=== PATIENT | male | born 1995 | race Caucasian/White ===

== ENCOUNTER → 2020-11-10 | Outpatient (CLI) | payer OTHER ==
--- NOTE | 2020-11-11 11:06 | XR ---
EXAMINATION TYPE: XR lumbosacral spine min 4V DATE OF EXAM: 11/10/2020 COMPARISON: None HISTORY: Low back pain TECHNIQUE: Five-view lumbar spine FINDINGS: There 5 lumbar-type vertebral bodies. Pedicles are intact. Disc heights are preserved. Vert ebral body heights are preserved. Alignment is normal. No spondylolytic defects are evident. IMPRESSION: 1. Normal 5 view lumbar spine
== END | disposition home or self-care (01) ==
LOC: RADXRYALE 16:01
PROVIDERS: ATTEND Physician Assistant Medical
DX: M54.5 Low back pain (principal)
CPT/HCPCS: 72110

== ENCOUNTER → 2022-04-12 | Outpatient (CLI) | payer OTHER ==
--- NOTE | 2022-04-12 12:25 | CT ---
EXAMINATION TYPE: CT angio thor/abd pel aorta DATE OF EXAM: 04/12/2022 INDICATION: SOB, HTN CT DLP: 1012 mGy.cm Automated Exposure Control for Dose Reduction was Utilized. TECHNIQUE AND CONTRAST: CT scan of the chest, abdomen and the pelvis is performed without and with IV Contrast, as per [facility] and abdominal aortic angiogram protocol. Patient injected with 100 ml mL of Isovue 370. 3-D rec onstruction images were generated on an independent workstation and reviewed. COMPARISON: None available. FINDINGS: Bovine aortic arch. The left hepatic artery is seen arising directly from the celiac trunk. Otherwise normal caliber and enhancement of the thoracic and abdominal aorta as well as major mediastinal, abd ominal and common iliac arteries without significant stenosis, occlusion, dissection, aneurysm or AV malformation. Single renal artery supplying each kidney. No central or major pulmonary embolism. No c ardiomegaly. Unremarkable lungs. Patent central airways. No pleural or pericardial effusion. No pathologically enl arged lymph nodes in the chest. Anterior mediastinal densities, likely related to residual thymic t[place]. Unremarkable liver, gallbladder, spleen, pancreas, adrenals and kidneys. Unremarkable stomach, duodenum and visualized small bowel. Moderate fecal loading of the colon. Scatt ered subcentimeter mesenteric lymph nodes, nonspecific. No abdominal ascites. No aggressive bone lesi on. IMPRESSION: No significant thoracic or abdominal aortic abnormality. Incidental findings as described above.
== END | disposition home or self-care (01) ==
LOC: RADCTMAIN 09:01
PROVIDERS: ATTEND Internal Medicine
DX: I10 Essential (primary) hypertension (principal); R07.9 Chest pain, unspecified; R06.02 Shortness of breath
CPT/HCPCS: 82533; 82088; 84244; 84443; 71275; 74174; Q9967

== ENCOUNTER 2022-06-04 08:58 | Day surgery (SDC) | payer OTHER ==
[~2022-06-04 08:58] MED LIST: ASPIRIN 325 MG TAB PO STA; SODIUM CHLORIDE 0.9% 1,000 ML in EMPTY BAG 1 BAG IV ONE
[2022-06-04 09:45] VITALS: RESP 18; TEMP 98.2
[2022-06-04] MEDS ORDERED: HEPARIN SODIUM 1,000 UN/ML (10ML VL) ONE (10:12)
[2022-06-04] MEDS ORDERED: fentaNYL (PF) 50 MCG/ML 2 ML AMP ONE (10:13)
[2022-06-04] MEDS ORDERED: MIDAZOLAM 2 MG/2 ML VIAL IV ONE (10:27)
[2022-06-04] MEDS ORDERED: fentaNYL (PF) 50 MCG/ML 2 ML AMP IV ONE (10:28)
[2022-06-04] MEDS ORDERED: LIDOCAINE 1% INJ 10MG/ML (5 ML VIAL-PF) SQ ONE (10:29)
[2022-06-04] MEDS ORDERED: IOPAMIDOL-250 100ML BTL INTRAARTER ONE ×2 (10:44)
--- NOTE | 2022-06-04 11:02 | P.PCN ---
Description of Procedure: PROCEDURES PERFORMED: Abdominal angiography and bilateral selective renal angiography INDICATION: Hyperreninemia, concern of fibromuscular dysplasia, hypertension HISTORY: Patient is a pleasant 26-year-old male with a history of hypertension in the age of approximately 18. There has been some component of whitecoat hypertension however has needed multiple medications to control blood pressure. His renin level was noted to be 4 times upper limit of normal and normal aldosterone level. He had a CT performed which showed no coarctation and was read out as normal renal arteries however high suspicion of fibromuscular dysplasia and therefore dedicated angiography was recommended. CONSENT:I have discussed the risks, benefits and alternative therapies for the above-mentioned procedure and for both sedation/analgesia as well as necessary blood product administration, if indicated, as they pertain to this patient. The patient has indicated understanding and acceptance of the risks and procedures discussed. PROCEDURE: After the risks, benefits and alternatives of the above mentioned procedure explained in detail with the patient, informed consent was obtained. Patient was taken to the catheterization lab and prepped and draped in usual fashion. 1% lidocaine was used to anesthetize the right femoral area. A 6-[facility] sheath was placed in the right femoral artery using modified Seldinger technique. A 5-Armenian pigtail catheter was inserted to the abdominal aorta and DSA imaging was obtained. Next a 6-Armenian IM catheter was used to engage bilateral renal arteries selectively and selective angiography was performed. Abdominal angiography: No calcification, no aneurysm, no significant stenosis. No accessory renal arteries noted Right renal artery: Normal without any significant stenosis Left renal artery: Normal without any significant stenosis FINAL IMPRESSION: 1. Normal abdominal angiogram and bilateral renal angiogram PLAN: 1. Aggressive risk factor modification per most recent ACC/AHA guidelines. 2. Follow-up in the office in 1-2 weeks.
--- NOTE | 2022-06-04 12:52 | IR ---
Fluoroscopy HISTORY: Pain 1.8 minutes fluoroscopy time supplied to the referring clinician. 99 intraoperative C-arm images doc ument the procedure. See dictated report from cardiology.
[2022-06-04 15:15] VITALS: BP 112/64; PULSE 64
== END 2022-06-04 15:30 | disposition home or self-care (01) ==
LOC: CATHCVL 08:58
PROVIDERS: ATTEND Internal Medicine
DX: E26.9 Hyperaldosteronism, unspecified (principal); R06.02 Shortness of breath; R78.89 Finding of other specified substances, not normally found in blood; Z20.822 Contact with and (suspected) exposure to COVID-19; I10 Essential (primary) hypertension; R07.89 Other chest pain; Z79.899 Other long term (current) drug therapy
CPT/HCPCS: 36252; 87635; C1760; C1769 ×3; C1894; J2250; J2001; J3010; Q9966

== ENCOUNTER → 2023-10-18 | Outpatient (CLI) | payer OTHER ==
--- NOTE | 2023-10-18 12:04 | XR ---
EXAMINATION TYPE: XR chest 2V DATE OF EXAM: 10/18/2023 COMPARISON: None INDICATION: Chest pain TECHNIQUE: Frontal and lateral views of the chest are obtained. FINDINGS: The heart size is normal. The pulmonary vasculature is normal. The lungs are clear. IMPRESSION: 1. No acute pulmonary process.
== END | disposition home or self-care (01) ==
LOC: RADXRYALE 11:10
PROVIDERS: ATTEND Physician Assistant Medical
DX: R07.1 Chest pain on breathing (principal)
CPT/HCPCS: 71046